=== PATIENT | female | born 1940 | race Caucasian/White ===

== ENCOUNTER 2025-05-25 13:09 | Emergency (ER) | payer OTHER ==
[~2025-05-25] VITALS: Ht 152.4 cm; Wt 50.0 kg
[2025-05-25 13:12] VITALS: O2SAT 99
[2025-05-25] MEDS ORDERED: TETANUS, DIPHTHERIA, PERTUSSIS VAC/PF 0.5ML (>10YR OLD) IM ONE (16:15)
[2025-05-25] MEDS ORDERED: LIDOCAINE HCL/PF 1% 10 MG/ML 5ML VIAL INFIL ONE (16:15)
[2025-05-25] MEDS ORDERED: BACITRACIN ZINC OINT UDPKT TOP ONE (16:15)
[2025-05-25 17:12] LABS: BASOPHILS % 0.6 % (0.0-2.0); EOSINOPHILS % 2.3 % (0.0-5.0); HEMATOCRIT. 45.7 % (36.0-48.0); HEMOGLOBIN. 15.1 g/dL (12.0-16.0); LYMPHOCYTES % 20.6 % (20.0-50.0); MEAN PLATELET VOLUME 7.9 fl (7.4-10.4); MONOCYTES % 8.6 % (2.0-8.0); NEUTROPHILS % 67.9 % (40.0-76.0); PLATELET 178 x1000/uL (130-400); RED BLOOD CELL COUNT 4.43 mill/uL (4.2-5.4); RED CELL DISTRIBUTION WIDTH 13.4 % (11.6-14.6)
[2025-05-25 17:30] LABS: CREATININE 1.2 mg/dL (0.6-1.0); UREA NITROGEN BLOOD 20.0 mg/dL (9-23)
[2025-05-25] MEDS ORDERED: BACITRACIN ZINC OINT UDPKT TOP NR (18:00)
[2025-05-25] MEDS: TETANUS, DIPHTHERIA, PERTUSSIS VAC/PF 0.5ML (>10YR OLD) IM ONE (18:31)
[2025-05-25] MEDS: LIDOCAINE HCL/PF 1% 10 MG/ML 5ML VIAL INFIL NR (20:24)
[2025-05-25] MEDS ORDERED: ACET-2708 MT (20:26)
[2025-05-25] MEDS ORDERED: LIDO-53 TP (20:26)
[2025-05-25 20:45] VITALS: BP 180/75; PULSE 76; RESP 12; TEMP 36.7; O2SAT 98
== END 2025-05-25 20:56 | disposition home or self-care (01) ==
LOC: EDBD 13:09 → ER 13:09
DX: S51.812A Laceration without foreign body of left forearm, initial encounter (principal); R05.9 Cough, unspecified; M54.2 Cervicalgia; Z88.5 Allergy status to narcotic agent; Z79.899 Other long term (current) drug therapy; V89.2XXA Person injured in unspecified motor-vehicle accident, traffic, initial encounter; Y93.89 Activity, other specified; Y92.410 Unspecified street and highway as the place of occurrence of the external cause; Y99.8 Other external cause status
CPT/HCPCS: 99285; 70450; 12007; 80048; 85025; 36415; 72125; 71250; 90715; 90471; J2003; 71260